=== PATIENT | male | born 1960 | race Caucasian/White ===

== ENCOUNTER 2018-12-22 21:55 | Emergency (ER) | payer OTHER ==
[2018-12-22 22:01] VITALS: BP 161/106; PULSE 73; RESP 18; TEMP 98.6
[2018-12-22] MEDS ORDERED: CLINDAMYCIN 150 MG CAP PO STA (22:09)
[2018-12-22] MEDS ORDERED: ACET/COD 300 MG/30 MG STARTER PACK 6 TAB BTL PO STA (22:09)
--- NOTE | 2018-12-22 22:11 | ED ---
ENT HPI - General Chief complaint: Dental/Oral Stated complaint: Dental pain Time Seen by Provider: 12/22/18 22:03 Source: patient Mode of arrival: ambulatory Limitations: no limitations - History of Present Illness Initial comments: 58-year-old male patient presents to the emergency department today for evaluation of right lower dental pain. Patient states the pain started earlier today and has worsened throughout the day. Patient denies any facial swelling or gum swelling. Patient states that he feels like he may be developing an abscess. He denies any nausea, vomiting, fever, chills, trismus, or difficulty swallowing. Patient states he will be able to make an up appointment for the dentist on Monday. Has not taken any medication for symptoms. Denies any history of diabetes. Patient denies any recent rash, shortness breath, chest pain, abdominal pain, diarrhea, constipation, back pain, numbness, tingling, dizziness, weakness, hematuria, dysuria, urinary urgency, urinary frequency, headache, visual changes, or any other complaints. - Related Data Previous Rx's Medication Instructions Recorded HYDROcodone/APAP 5-325MG [[place] 5] 1 each PO Q4HR PRN #20 tab 11/27/15 Ketorolac [Toradol] 10 mg PO Q6HR PRN #15 tab 11/27/15 Tamsulosin [Flomax] 0.4 mg PO DAILY #5 cap 11/27/15 Clindamycin HCl 300 mg PO Q8H #30 cap 12/22/18 Allergies Allergy/AdvReac Type Severity Reaction Status Date / Time venom-honey bee Allergy Anaphylaxis Verified 12/22/18 22:00 [bee venom (honey bee)] Penicillins AdvReac Rash/Hives Verified 12/22/18 22:00 Review of Systems ROS Statement: Those systems with pertinent positive or pertinent negative responses have been documented in the HPI. ROS Other: All systems not noted in ROS Statement are negative. Past Medical History Additional Past Medical History / Comment(s): KIDNEY STONES History of Any Multi-Drug Resistant Organisms: None Reported Additional Past Surgical History / Comment(s): VASECTOMY Past Psychological History: No Psychological Hx Reported Smoking Status: Former smoker Past Alcohol Use History: Daily Past Drug Use History: None Reported General Exam Limitations: no limitations General appearance: alert, in no apparent distress, other (Physical well- developed, well-nourished adult male patient in no acute distress. Vital signs upon presentation are temperature 98.6F, pulse 73, respirations 18, blood pressure 161/106, pulse ox 96% on room air.) Eye exam: Present: normal appearance, PERRL, EOMI. Absent: scleral icterus, conjunctival injection, periorbital swelling ENT exam: Present: normal oropharynx, mucous membranes moist, other (Patient has mild gingival erythema and hyperplasia around the right lower dentition. Tenderness over tooth number 29 and 30. No evidence of drainable abscess.). Absent: normal exam Neck exam: Present: normal inspection. Absent: tenderness, meningismus, lymphadenopathy Cardiovascular Exam: Present: regular rate, normal rhythm, normal heart sounds. Absent: systolic murmur, diastolic murmur, rubs, gallop, clicks GI/Abdominal exam: Present: soft, normal bowel sounds. Absent: distended, tenderness, guarding, rebound, rigid Neurological exam: Present: alert, oriented X3, CN II-XII intact Psychiatric exam: Present: normal affect, normal mood Skin exam: Present: warm, dry, intact, normal color. Absent: rash Course Vital Signs 12/22/18 21:58 Temperature 98.6 F Pulse Rate 73 Respiratory 18 Rate Blood Pressure 161/106 O2 Sat by Pulse 96 Oximetry Medical Decision Making - Medical Decision Making 58 year-old male patient presents to the emergency department today for evaluation of right lower dental pain. Physical examination did reveal gingival erythema and hyperplasia surrounding the right lower dentition. There is tenderness over teeth #29 and 30. No fever. We discharged home at this time with a prescription for clindamycin and a starter pack for Tylenol with codeine. Is instructed take ibuprofen for pain control. He is instructed to follow-up with dentistry as soon as possible. Return parameters were discussed in detail. He verbalizes understanding and agrees with this plan. Disposition Clinical Impression: Dental abscess Disposition: HOME SELF-CARE Condition: Good Instructions (If sedation given, give patient instructions): Dental Abscess (ED), Toothache (ED) Additional Instructions: Complete antibiotic prescription in full. Follow up with dentistry as soon as possible. Take ibuprofen as needed for pain relief, use Tylenol 3 sparingly for severe pain. Return to the emergency department immediately for any new, worsening, or concerning symptoms. Prescriptions: Clindamycin HCl 300 mg PO Q8H #30 cap Is patient prescribed a controlled substance at d/c from ED?: No Referrals: Andres Diehl MD [Primary Care Provider] - 1-2 days Time of Disposition: 22:11
== END 2018-12-22 22:22 | disposition home or self-care (01) ==
LOC: EC 21:55
DX: K04.7 Periapical abscess without sinus (principal); Z88.0 Allergy status to penicillin; Z91.030 Bee allergy status; Z87.891 Personal history of nicotine dependence
CPT/HCPCS: 99282

== ENCOUNTER → 2023-02-16 | Outpatient (CLI) | payer BC ==
--- NOTE | 2023-02-16 10:10 | XR ---
EXAMINATION TYPE: XR lumbosacral spine min 4V DATE OF EXAM: 02/16/2023 10:06 AM INDICATION: Patient age:Male; 62 years old; Reason for study: [id number] LBP; [facility]. COMPARISON: None TECHNIQUE: Frontal, lateral , bilateral oblique and coned in L5-S1 lateral views of the spine. FINDINGS: No evidence of any acute osseous pathology. No evidence of loss of vertebral body height i s seen. There is normal alignment of the lumbar vertebral bodies. Mild scattered disc space narrowing . Multilevel marginal osteophyte formation throughout the visualized spine. There is facet joint arth ropathy throughout the spine. Scattered at least mild neural foraminal stenosis worse at L5-S1 and L4 -L5. Atherosclerosis of the arterial vasculature. IMPRESSION: 1. No acute fracture. 2. Moderate multilevel disc degeneration.
== END | disposition home or self-care (01) ==
LOC: RADXRYALE 09:52
PROVIDERS: ATTEND Physician Assistant
DX: M51.37 Other intervertebral disc degeneration, lumbosacral region (principal)
CPT/HCPCS: 72110